=== PATIENT | female | born 1975 | race Caucasian/White ===

== ENCOUNTER 2016-11-25 14:18 | Emergency (ER) | payer BC, OTHER ==
[2016-11-25] MEDS ORDERED: NORMAL SALINE 1000 ML 1,000 ML IV ONE ×2 (14:44→16:39)
--- NOTE | 2016-11-25 14:46 | ER Document Report ---
ED Medical Screen (RME) - General Chief Complaint: High Blood Sugar Stated Complaint: BLOOD SUGAR ISSUES Time Seen by Provider: 11/25/16 14:44 Notes: Patient states that she is having nausea vomiting and dizziness. She states she took her blood sugar at home and it was 694. She states she was diagnosed with diabetes approximately 2 months ago. She states for the first month she was placed on metformin. She states approximately 3 weeks ago her provider told her that he wanted her to lower her blood sugar with exercise and diet and not with medications. She has had no medications for diabetes in approximately 3 weeks. - Related Data Allergies/Adverse Reactions: latex [Latex] Allergy (Severe, Verified 11/25/16 14:23) welts Iodinated Contrast- Oral and IV Dye [IV Dye, Iodine Containing] Allergy ( Verified 11/25/16 14:23) powder in gloves Allergy (Severe, Uncoded 11/17/11 10:43) Hives Past Medical History - Social History Frequency of alcohol use: Rare Drug Abuse: None - Past Medical History Cardiac Medical History: Reports: Hx Hypercholesterolemia Denies: Hx Coronary Artery Disease, Hx Heart Attack, Hx Hypertension Pulmonary Medical History: Denies: Hx Asthma, Hx Bronchitis, Hx COPD, Hx Pneumonia Neurological Medical History: Reports: Hx Seizures - Last was "several years ago ". Denies: Hx Cerebrovascular Accident Endocrine Medical History: Reports: Hx Diabetes Mellitus Type 2 Renal/ Medical History: Denies: Hx Peritoneal Dialysis Musculoskeltal Medical History: Denies Hx Arthritis Past Surgical History: Reports: Hx Gynecologic Surgery - NOVASURE, Hx Hysterectomy, Hx Tonsillectomy. Denies: Hx Pacemaker - Immunizations Immunizations up to date: Yes Hx Diphtheria, Pertussis, Tetanus Vaccination: Yes Physical Exam - Vital signs Vitals: Temp Pulse BP Pulse Ox 98.6 F 97 133/81 H 97 11/25/16 14:24 11/25/16 14:24 11/25/16 14:24 11/25/16 14:24 Course - Vital Signs Vital signs: Temp Pulse Resp BP Pulse Ox 98.6 F 97 133/81 H 97 11/25/16 14:24 11/25/16 14:24 11/25/16 14:24 11/25/16 14:24 - Laboratory Laboratory results interpreted by me: 11/25/16 14:23 POC Glucose 446 H*
[2016-11-25 15:22] LABS: ABSOLUTE EOSINOPHILS # (AUTO) 0.1 10^3/uL (0.0-0.6); ABSOLUTE LYMPHOCYTES (AUTO) 1.3 10^3/uL (0.5-4.7); ABSOLUTE MONOCYTES (AUTO) 0.4 10^3/uL (0.1-1.4); ABSOLUTE NEUT (AUTO) 3.8 10^3/uL (1.7-8.2); BASOPHILS % (AUTO) 0.9 % (0-2); EOSINOPHILS % (AUTO) 2.1 % (0-6); HEMATOCRIT 39.8 % (36.0-47.0); HEMOGLOBIN 14.4 g/dL (12.0-15.5); HGB HCT DIFFERENCE 3.4; LYMPHOCYTES % (AUTO) 22.3 % (13-45); MEAN CORPUSCULAR HEMOGLOBIN 30.1 pg (27.0-33.4); MEAN CORPUSCULAR HGB CONC 36.1 g/dL (32.0-36.0); MEAN CORPUSCULAR VOLUME 83 fl (80-97); MONOCYTES % (AUTO) 7.7 % (3-13); RED BLOOD COUNT 4.77 10^6/uL (3.72-5.28); RED CELL DISTRIBUTION WIDTH 13.3 % (11.5-14.0); WHITE BLOOD COUNT 5.7 10^3/uL (4.0-10.5)
[2016-11-25 15:40] LABS: ALANINE AMINOTRANSFERASE 62 U/L (9-52); ALBUMIN 4.8 g/dL (3.5-5.0); ALKALINE PHOSPHATASE 121 U/L (38-126); ANION GAP 17 (5-19); ASPARTATE AMINO TRANSFERASE 43 U/L (14-36); BILIRUBIN,DIRECT 0.4 mg/dL (0.0-0.4); BILIRUBIN,TOTAL 0.7 mg/dL (0.2-1.3); BLOOD UREA NITROGEN 9 mg/dL (7-20); CALCIUM 10.7 mg/dL (8.4-10.2); CARBON DIOXIDE 21 mmol/L (22-30); CHLORIDE 101 mmol/L (98-107); CREATININE RESULT 0.52 mg/dL (0.52-1.25); POTASSIUM 4.3 mmol/L (3.6-5.0); TOTAL PROTEIN 7.9 g/dL (6.3-8.2)
[2016-11-25 15:45] LABS: GLUCOSE 378 mg/dL (75-110)
[2016-11-25 15:46] LABS: APPEARANCE,URINE CLEAR; BILIRUBIN,URINE NEGATIVE (NEGATIVE); GLUCOSE, URINE >=500 mg/dL (NEGATIVE); KETONES,URINE NEGATIVE (NEGATIVE); LEUKOCYTE ESTERASE,URINE NEGATIVE (NEGATIVE); NITRITE,URINE NEGATIVE (NEGATIVE); PROTEIN,URINE NEGATIVE (NEGATIVE); URINE SPECIFIC GRAVITY 1.031; UROBILINOGEN,URINE NEGATIVE mg/dL (<2.0)
--- NOTE | 2016-11-25 16:08 | ER Document Report ---
ED Blood Sugar Problem - General Mode of Arrival: Ambulatory Information source: Patient <GADIEL SIMS - Last Filed: 11/25/16 16:09> <GENEVA RICHARDSON - Last Filed: 11/25/16 19:17> - General Chief Complaint: High Blood Sugar Stated Complaint: BLOOD SUGAR ISSUES Time Seen by Provider: 11/25/16 14:44 Notes: Patient is a 41 year old female that presents to the emergency department today with complaints of a BGL of 694 today prior to arrival. Patient states that she was diagnosed with diabetes a few months ago and was started on metformin for a month. Patient states that after that month her PCP decided that she should control her sugars with diet and exercise only. Patient states that she has had an associated head cold the last few days with a cough, dizziness, and a headache. Patient denies any dysuria. (GADIEL SIMS) - Related Data Allergies/Adverse Reactions: latex [Latex] Allergy (Severe, Verified 11/25/16 14:23) welts Iodinated Contrast- Oral and IV Dye [IV Dye, Iodine Containing] Allergy ( Verified 11/25/16 14:23) powder in gloves Allergy (Severe, Uncoded 11/17/11 10:43) Hives Past Medical History - General Information source: Patient - Social History Smoking Status: Never Smoker Cigarette use (# per day): No Frequency of alcohol use: Rare Drug Abuse: None Lives with: Family Family History: None - Past Medical History Cardiac Medical History: Reports: Hx Hypercholesterolemia Neurological Medical History: Reports: Hx Seizures - Last was "several years ago " Endocrine Medical History: Reports: Hx Diabetes Mellitus Type 2 Past Surgical History: Reports: Hx Gynecologic Surgery - NOVASURE, Hx Hysterectomy, Hx Tonsillectomy - Immunizations Immunizations up to date: Yes Hx Diphtheria, Pertussis, Tetanus Vaccination: Yes <GADIEL SIMS - Last Filed: 11/25/16 16:09> Review of Systems - Review of Systems Constitutional: See HPI, Other - Elevated BGL-694 EENT: No symptoms reported Cardiovascular: No symptoms reported Respiratory: See HPI, Cough Gastrointestinal: No symptoms reported Genitourinary: No symptoms reported Female Genitourinary: No symptoms reported Musculoskeletal: No symptoms reported Skin: No symptoms reported Hematologic/Lymphatic: No symptoms reported Neurological/Psychological: See HPI, Headaches -: Yes All other systems reviewed and negative <GADIEL SIMS - Last Filed: 11/25/16 16:09> Physical Exam <GADIEL SIMS - Last Filed: 11/25/16 16:09> <GENEVA RICHARDSON - Last Filed: 11/25/16 19:17> - Vital signs Vitals: Temp Pulse BP Pulse Ox 98.6 F 97 133/81 H 97 11/25/16 14:24 11/25/16 14:24 11/25/16 14:24 11/25/16 14:24 - Notes Notes: Physical Exam: General: Alert, appears well. HEENT: Normocephalic. Atraumatic. PERRL. Extraocular movements intact. Oropharynx clear. Neck: Supple. Non-tender. Respiratory: No respiratory distress. Clear and equal breath sounds bilaterally. Cardiovascular: Regular rate and rhythm. Abdominal: Normal Inspection. Non-tender. No distension. Normal Bowel Sounds. Back: Non-tender, no CVA tenderness with percussion. No deformity or step off. Extremities: Moves all four extremities. Upper extremities: Normal inspection. Normal ROM. Lower extremities: Normal inspection. No edema. Normal ROM. Neurological: Normal cognition. AAOx4. Normal speech. Psychological: Normal affect. Normal Mood. Skin: Warm. Dry. Normal color. (BETHANYGADIEL) Course - Laboratory Result Diagrams: 11/25/16 15:00 11/25/16 15:00 <GADIEL SIMS - Last Filed: 11/25/16 16:09> - Laboratory Result Diagrams: 11/25/16 15:00 11/25/16 15:00 <GENEVA RICHARDSON - Last Filed: 11/25/16 19:17> - Re-evaluation Re-evalutation: 11/25/16 19:14 Patient with diabetes. She has been running high for about 2 months since she was first diagnosed. The provider taking care of her had her stop her Metformin for unclear reasons. Should her sugar today was elevated above 600. We have treated her with 2 L of normal saline and no other medications. Her glucose has dropped significantly into the 300s and now is 214. The patient feels better and looks well. She has no signs of ketosis. We looked for infection that may have triggered the elevated sugars. Her urinalysis and chest x-ray did not show any evidence of acute infection. I have asked the patient to restart her Metformin. She may need more aggressive medication than that. (GENEVA RICHARDSON) - Vital Signs Vital signs: Temp Pulse Resp BP Pulse Ox 98.6 F 97 133/81 H 97 11/25/16 14:24 11/25/16 14:24 11/25/16 14:24 11/25/16 14:24 - Laboratory Laboratory results interpreted by me: 11/25/16 11/25/16 11/25/16 14:23 15:00 15:00 MCHC 36.1 H Carbon Dioxide 21 L Glucose 378 H POC Glucose 446 H* Calcium 10.7 H AST 43 H ALT 62 H Urine Glucose (UA) 11/25/16 15:00 MCHC Carbon Dioxide Glucose POC Glucose Calcium AST ALT Urine Glucose (UA) >=500 H Discharge <GADIEL SIMS - Last Filed: 11/25/16 16:09> <GENEVA RICHARDSON - Last Filed: 11/25/16 19:17> - Discharge Clinical Impression: Hyperglycemia due to type 2 diabetes mellitus Qualifiers: Diabetes mellitus intermediate teacher insulin use: without mcc use Qualified Code(s ): E11.65 - Type 2 diabetes mellitus with hyperglycemia Disposition: HOME, SELF-CARE Instructions: Hyperglycemia ([facility]) Additional Instructions: Restart your metformin. Follow-up with your primary provider to discuss any further treatment. Drink plenty of water and avoid simple sugars. Return to the emergency department if you have significantly elevated blood sugars and are unable to get them back under control. Prescriptions: Metformin HCl [Glucophage 500 mg Tablet] 500 mg PO BID #60 tablet Referrals: LUZ ELENA DUMONT MD [Primary Care Provider] - Follow up in 3-5 days Scribe Attestation: 11/25/16 19:17 I personally performed the services described in the documentation, reviewed and edited the documentation which was dictated to the scribe in my presence, and it accurately records my words and actions. (GENEVA RICHARDSON) Scribe Documentation - Scribe Written by Ryan:: Ryan Rivera, 11/25/2016 1614 acting as scribe for :: Pat <GADIEL SIMS - Last Filed: 11/25/16 16:09>
--- NOTE | 2016-11-25 17:52 | RADIOLOGY REPORT (SQ) ---
EXAM DESCRIPTION: CHEST PA/LAT COMPLETED DATE/TIME: 11/25/2016 5:39 pm REASON FOR STUDY: Cough, shortness of breath, hyperglycemia COMPARISON: 06/10/2007 EXAM PARAMETERS: NUMBER OF VIEWS: two views TECHNIQUE: Digital Frontal and Lateral radiographic views of the chest acquired. RADIATION DOSE: NA LIMITATIONS: none FINDINGS: LUNGS AND PLEURA: No opacities, masses or pneumothorax. No pleural effusion. MEDIASTINUM AND HILAR STRUCTURES: No masses or contour abnormalities. HEART AND VASCULAR STRUCTURES: Heart normal size. No evidence for failure. BONES: No acute findings. HARDWARE: None in the chest. OTHER: No other significant finding. IMPRESSION: NO SIGNIFICANT RADIOGRAPHIC FINDING IN THE CHEST. TECHNICAL DOCUMENTATION: JOB ID: [id number] [employer]- All Rights Reserved
[2016-11-25 19:38] VITALS: BP 141/74
== END 2016-11-25 19:37 | disposition home or self-care (01) ==
LOC: ER 14:18
DX: E11.65 Type 2 diabetes mellitus with hyperglycemia (principal); R05 Cough; R42 Dizziness and giddiness; R51 Headache; Z91.040 Latex allergy status; Z91.041 Radiographic dye allergy status; Z91.048 Other nonmedicinal substance allergy status
CPT/HCPCS: 99284; 96360; 96361; 36415; 82962; 85025; 80053; 81001; 71020; J7030